=== PATIENT | male | born 1955 ===

== ENCOUNTER 2017-09-24 01:51 | Day surgery (SDC) | payer MEDICARE, BC ==
[2017-09-24] VITALS (9 sets, daily range): BP systolic 118–136; BP diastolic 61–84
[~2017-09-24] VITALS: Ht 165.1 cm; Wt 74.8 kg
[~2017-09-24 01:51] MED LIST: ALBU2.5V36 INH; ASPI81TA94 PO; AZIT-1 PO; FLUT1DIS28 IH; METF-411 PO; METO25TA93 PO; OXYGENHOME INH; PRAV20TA65 PO; UMEC62.5 INH; VERA240T12 PO; WARF5TAB23 PO
[2017-09-24] MEDS ORDERED: PROPOFOL EMUL(*) 10MG/ML 20 ML 20 ML ONE ×2 (08:48→11:41)
[2017-09-24] MEDS ORDERED: fentaNYL CITR 100 MCG/2 ML AMP ONE ×3 (08:48→13:09)
[2017-09-24] MEDS ORDERED: DEXAMETHASONE SOD PHOS 10MG/ML ONE (08:48)
[2017-09-24] MEDS ORDERED: ONDANSETRON 4 MG/2 ML VIAL ONE (08:48)
[2017-09-24] MEDS ORDERED: LIDOCAINE MPF 1% 5 ML VIAL ONE (08:48)
[2017-09-24] MEDS ORDERED: ROPIVACAINE 0.2% 20 ML VIAL ONE (09:33)
[2017-09-24 10:56] LABS: INR 1.09
[2017-09-24] MEDS ORDERED: ePHEDrine 25 MG/5 ML DISP.SYR IVP ONE (11:13)
[2017-09-24] MEDS ORDERED: OXYC-373 PO (12:47)
[2017-09-24] MEDS ORDERED: ALBUTEROL/IPRATROPIUM 3 ML NEB NEB ONE (12:55)
[2017-09-24] MEDS ORDERED: MIDAZOLAM 2 MG/2 ML VIAL IVP PRN (15:00)
[2017-09-24] MEDS ORDERED: FAMOTIDINE 20 MG TAB PO ONE (15:00)
[2017-09-24] MEDS ORDERED: LIDOCAINE/SOD BICARB 8.4% SYR ID ONE (15:00)
[2017-09-24] MEDS ORDERED: ceFAZolin(*) 2GM/D5W 50ML 50 ML IVPB ONE (15:00)
[2017-09-24] MEDS ORDERED: NORMOSOL R SOLN(*) 1000 ML BAG 1,000 ML IV PRN (15:00)
[2017-09-24] MEDS ORDERED: CELECOXIB 200 MG CAP PO ONE (15:00)
--- NOTE | 2017-09-24 22:38 | OPERATIVE REPORT 1 ---
EVENT DATE: September 24, 2017 SURGEON: Roverto Stanley MD ANESTHESIOLOGIST: Harris Nicole MD ANESTHESIA: General. FABRIC STRETCHER: JITENDRA Napoles PREOPERATIVE DIAGNOSIS Left shoulder rotator cuff tear, labral fraying, and biceps fraying, as well as impingement. POSTOPERATIVE DIAGNOSIS Left shoulder rotator cuff tear, labral fraying, and biceps fraying, as well as impingement. PROCEDURE PERFORMED Left shoulder rotator cuff repair, labral debridement, biceps tenotomy, subacromial decompression and extensive debridement. FINDINGS The patient had a torn rotator cuff and labrum and fraying along the biceps. It was amenable for rotator cuff repair in the above-named procedure. COMPLICATIONS None. TOURNIQUET TIME Not applicable. IMPLANTS USED [employer] JuggerKnot 2.9 mm anchor, and no other implants. SPECIMENS None. DRAINS None. INDICATIONS AND HISTORY This patient is a 61-year-old male who presented to my clinic for evaluation of left shoulder pain and irritation going on for some time and continuing to have pain and irritation despite conservative management. So therefore, we ended up getting an MRI which showed some fraying in the bicipital area as well as a near full-thickness rotator cuff tear in the supraspinatus, so therefore, we talked about the implications of this as well as the treatment options associated with it. He wanted to go ahead with a left shoulder rotator cuff repair, labral debridement, biceps tenotomy, and probable subacromial decompression associated with this. We discussed the risks and benefits, and informed consent was obtained at the last clinic visit. He understood it may not completely take care of all of his pain and problems associated with it. DESCRIPTION OF PROCEDURE As the patient was brought in the operating room, he and the procedure were both verified. He was placed supine on the operating table and induced and intubated by Anesthesia. The left upper extremity was then prepped and draped in the usual fashion in the lateral decubitus position. The standard incisions were made over the anterior and posterior aspects of the shoulder. They were taken through the skin and subcutaneous tissue, and I inserted the scope from the posterior aspect. I did a diagnostic arthroscopy. This was when I did an extensive debridement through this area and also a little bit of a chondroplasty and then debrided the labrum. I then cut the biceps tendon as there was fraying and irritation associated with the biceps tendon on this side. I was then able to debride the undersurface of the rotator cuff and then do another visual inspection throughout the entirety of the intra-articular portion of the joint. I then tagged the rotator cuff tear. It was about 90% through, and I wanted to take it down from upper portion and from the subacromial space, and so therefore, we tagged it with a PDS suture and then removed all instrumentation and went up into the subacromial space. Once I performed a significant subacromial decompression and bursectomy in this area and extensive debridement, I then was able to identify the tear using the PDS that I put in previously. There was also a very soft spot associated with this, and so I took it down using electrocautery and a suction shaver and then was able to decorticate the footprint a little bit in order to make it amenable for an anchor. I then placed a 2.9 JuggerKnot anchor into the footprint. I was then able to pass all four limbs through the U-shaped tear without any difficulty and then tie them back in a horizontal mattress-type fashion. Once I did this, there were no signs of problems or issues, and no signs of gapping associated with with the rotator cuff, and I was able to rotate it back and forth with no signs of issues, and we had good security. I then checked to make sure there were no signs of further impingement after taking off the subacromial spur with a erwin. I then drained the fluid out of the shoulder and anesthetized the portal sites with ropivacaine, sutured them with a 4-0 Monocryl in a subcuticular stitch, and then followed this up by dressing with Steri-Strips, gauze 4 x 4's, and a soft dressing. The patient was then awakened, extubated, and transferred to PACU in stable condition in an abduction sling. [facility]
== END 2017-09-24 13:45 | disposition home or self-care (01) ==
LOC: OR 01:51
PROVIDERS: ATTEND Orthopaedic Surgery
DX: M75.102 Unspecified rotator cuff tear or rupture of left shoulder, not specified as traumatic (principal); S43.402A Unspecified sprain of left shoulder joint, initial encounter; M75.42 Impingement syndrome of left shoulder; I25.10 Atherosclerotic heart disease of native coronary artery without angina pectoris; I10 Essential (primary) hypertension; E11.9 Type 2 diabetes mellitus without complications; I48.2 Chronic atrial fibrillation; G47.33 Obstructive sleep apnea (adult) (pediatric); J44.9 Chronic obstructive pulmonary disease, unspecified
CPT/HCPCS: 29826; 29827; 36415; 36416; 82948; 85610; 94640; 94667; A4565; A9270; C1713; J1100; J2001; J2405; J2704; J2795; J3010